=== PATIENT | female | born 1940 | race Caucasian/White ===

== ENCOUNTER → 2017-06-04 | Outpatient (CLI) | payer MEDICARE ==
[~2017-06-04] MED LIST: ASPI-515 PO; LEVO100T PO; MELO7.5T5 PO; METH750T87 PO; OMEP40CA6 PO; OXYC-229 PO; RANI300T PO; ROSU5TAB PO; SERT25TA3 PO; TYLENOL PM PO; [UNRECOGNIZED DRUG - OTHER] PO
== END | disposition home or self-care (01) ==
LOC: RAD 11:32
PROVIDERS: ATTEND Neurological Surgery
DX: M43.16 Spondylolisthesis, lumbar region (principal); M41.86 Other forms of scoliosis, lumbar region; M47.897 Other spondylosis, lumbosacral region; M43.12 Spondylolisthesis, cervical region
CPT/HCPCS: 72082

== ENCOUNTER → 2018-01-30 | Outpatient (CLI) | payer MEDICARE ==
[~2018-01-30] MED LIST changes: -OXYC-229 PO; +OXYC-307 PO
== END | disposition home or self-care (01) ==
LOC: RAD 09:51
PROVIDERS: ATTEND Neurological Surgery
DX: M47.892 Other spondylosis, cervical region (principal); M41.86 Other forms of scoliosis, lumbar region; M41.87 Other forms of scoliosis, lumbosacral region
CPT/HCPCS: 72082